=== PATIENT | male | born 2000 | race Caucasian/White ===

== ENCOUNTER 2018-12-24 04:25 | Emergency (ER) | payer SELFPAY ==
[~2018-12-24] VITALS: Ht 180.3 cm; Wt 99.7 kg
[2018-12-24 04:27] VITALS: Ht 180.3 cm; Wt 99.7 kg
[2018-12-24] MEDS ORDERED: LIDOCAINE 1% (MDV) 20 ML INJ SC ONE (05:00)
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
[2018-12-24 09:58] VITALS: BP 121/64; PULSE 83; RESP 16
== END 2018-12-24 10:18 | disposition home or self-care (01) ==
LOC: E/R 04:25
DX: S01.01XA Laceration without foreign body of scalp, initial encounter (principal); F13.129 Sedative, hypnotic or anxiolytic abuse with intoxication, unspecified; F12.10 Cannabis abuse, uncomplicated; F10.10 Alcohol abuse, uncomplicated; W22.8XXA Striking against or struck by other objects, initial encounter
CPT/HCPCS: 70450